=== PATIENT | male | born 1955 | race Caucasian/White ===

== ENCOUNTER 2017-05-16 10:33 | Outpatient (CLI) | payer BC ==
--- NOTE | 2017-05-16 13:20 | ULT ---
ULTRASOUND ABDOMEN COMPLETE: HISTORY: 61-year-old male with generalized abdominal pain. COMPARISON: None. TECHNIQUE: Schmidt-scale ultrasound evaluation of the liver, gallbladder, spleen, pancreas, common bile duct, kidn eys, abdominal aorta, and inferior vena cava (IVC). FINDINGS: There is a large amount of shadowing from bowel gas which obscures certain portions of the abdominal cavity. There dilated, tortuous blood vessels in the upper abdomen, directly inferior to the left l obe of the liver. The varices are up to 20 mm in caliber. The liver is normal in size and echogenici ty. The spleen is approximately 15.5 x 10 x 11 cm, and has lost its normal hilar concavity. A struct ure labelled as the common duct is 4 mm in caliber. There is no hydronephrosis of the bilateral kidn eys. The pancreas is very poorly visualized. The abdominal aorta and inferior vena cava are poorly v isualized. No free fluid is identified in the bilateral upper quadrants. No gallstones are identifie d. No gallbladder wall thickening or sonographic Elmore's sign. IMPRESSION: 1. 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 2. Splenomegaly. 3. Consider CT of abdomen and pelvis with contrast, for further evaluation. CAPRICE Ball POS: [place]
== END 2017-05-16 10:34 | disposition home or self-care (01) ==
LOC: ULT 10:33
PROVIDERS: ATTEND Family Medicine
DX: R60.0 Localized edema (principal); I86.8 Varicose veins of other specified sites; R16.1 Splenomegaly, not elsewhere classified; I07.1 Rheumatic tricuspid insufficiency; I34.0 Nonrheumatic mitral (valve) insufficiency; I35.1 Nonrheumatic aortic (valve) insufficiency
CPT/HCPCS: 76700; 93306

== ENCOUNTER 2021-12-01 07:41 | Outpatient (CLI) | payer MEDICARE, OTHER | END 2021-12-01 07:42 | disposition home or self-care (01) | LOC: BICULT 07:41 | PROVIDERS: ATTEND Family Medicine | DX: R74.01 Elevation of levels of liver transaminase levels (principal); D69.6 Thrombocytopenia, unspecified | CPT/HCPCS: 76700 ==

== ENCOUNTER 2022-02-01 08:00 | Outpatient (CLI) | payer MEDICARE, OTHER ==
[2022-02-01] MEDS ORDERED: Iopamidol-370 76% 500 ML 1 ML ONE (11:10)
== END 2022-02-01 08:01 | disposition home or self-care (01) ==
LOC: BICCT 08:00
PROVIDERS: ATTEND Physician Assistant Medical
DX: R79.89 Other specified abnormal findings of blood chemistry (principal); D69.6 Thrombocytopenia, unspecified; E80.6 Other disorders of bilirubin metabolism; T14.8XXA Other injury of unspecified body region, initial encounter; R53.83 Other fatigue; K76.6 Portal hypertension; R16.1 Splenomegaly, not elsewhere classified; I81 Portal vein thrombosis; I86.8 Varicose veins of other specified sites; R60.0 Localized edema; K82.8 Other specified diseases of gallbladder
CPT/HCPCS: 74170; Q9967

== ENCOUNTER 2022-07-27 08:47 | Outpatient (CLI) | payer MEDICARE | END 2022-07-27 08:48 | disposition home or self-care (01) | LOC: MRI 08:47 | PROVIDERS: ATTEND Physician Assistant Medical | DX: B18.2 Chronic viral hepatitis C (principal); K74.60 Unspecified cirrhosis of liver; K76.6 Portal hypertension; I81 Portal vein thrombosis | CPT/HCPCS: 74183 ==

== ENCOUNTER 2022-12-12 16:34 | Outpatient (CLI) | payer MEDICARE ==
[2022-12-12 17:51] LABS: ALT (SGPT) 39 U/L (8-55); AST (SGOT) 48 U/L (5-34); Albumin 3.1 g/dL (3.4-4.8); Alkaline Phosphatase 84 U/L (40-110); Anion Gap 11 mmol/L (10-20); BUN (Urea Nitrogen) 19 mg/dL (8.4-25.7); Bilirubin, Total 1.4 mg/dL (0.2-1.2); Calc. Creatinine Clearance 0 mL/min (70-130); Calcium 8.5 mg/dL (7.8-10.44); Carbon Dioxide 20 mmol/L (23-31); Chloride 112 mmol/L (98-107); Estimated GFR 105; Globulin 2.7 g/dL (2.4-3.5); Glucose 95 mg/dL (80-115); Potassium 4.4 mmol/L (3.5-5.1); Protein, Total 5.8 g/dL (5.8-8.1); Sodium 139 mmol/L (136-145)
[2022-12-12 17:52] LABS: #Basophils 0.1 10x3/uL (0.0-0.2); #Eosinphils 0.2 10x3/uL (0.0-0.5); #Monocytes 0.4 10x3/uL (0.0-1.1); #Neutrophils 2.7 10x3/uL (1.5-8.4); %Basophils 1.1 % (0.0-2.0); %Eosinophils 4.3 % (0.0-6.0); %Lymphocytes 24.9 % (18.0-47.0); Hemoglobin 14.5 g/dL (13.5-17.5); Mean Corpuscular HGB CONC 35.1 g/dL (32.0-36.0); Mean Corpuscular Hemoglobin 34.4 pg (27.0-33.0); Mean Corpuscular Volume 97.9 fl (81.2-95.1); Mean Platelet Volume 11.4 fl (7.4-10.4); Platelet Count 64 10x3/uL (150-450); RBC Distribution Width 14.2 % (11.5-14.5); Red Blood Cell (RBC) Count 4.22 10x6/uL (4.32-5.72); White Blood Cell (WBC) Count 4.4 10x3/uL (3.5-10.5)
== END 2022-12-12 16:35 | disposition home or self-care (01) ==
LOC: LABBT 16:34
PROVIDERS: ATTEND Surgery
DX: Z01.818 Encounter for other preprocedural examination (principal); K42.9 Umbilical hernia without obstruction or gangrene
CPT/HCPCS: 80053; 85025; 93005; 93010

== ENCOUNTER 2022-12-15 11:21 | Day surgery (SDC) | payer MEDICARE ==
[2022-12-12 16:59] VITALS: BMI 26.6
[2022-12-15] MEDS ORDERED: Bupivacaine/Epinephrine 0.25% 30 ML VIAL ONE (12:17)
[2022-12-15] MEDS ORDERED: Fentanyl 250 MCG/5 ML VIAL ONE (12:36)
[2022-12-15] MEDS ORDERED: Sodium Chloride 0.9% 100 ML ONE (12:42)
[2022-12-15] MEDS ORDERED: CEFAZOLIN 2 GM VIAL ONE (12:42)
[2022-12-15] MEDS ORDERED: Ketorolac Tromethamine 30 MG/ML VIAL ONE (12:48)
[2022-12-15] MEDS ORDERED: Ondansetron PF 4 MG/2 ML Vial ONE (12:48)
[2022-12-15] MEDS ORDERED: Dexamethasone 20 MG/5 ML VIAL ONE (12:48)
[2022-12-15] MEDS ORDERED: Lidocaine 1% PF 5 ML VIAL ONE (12:48)
[2022-12-15] MEDS ORDERED: PROPOFOL 200 MG/20 ML VIAL ONE (12:48)
== END 2022-12-15 16:12 | disposition home or self-care (01) ==
LOC: SDC 11:21
PROVIDERS: ATTEND Surgery
PROC: 0WQF0ZZ Repair Abdominal Wall, Open Approach (ICD-10-PCS; principal; 2022-12-15)
DX: K42.9 Umbilical hernia without obstruction or gangrene (principal); F17.290 Nicotine dependence, other tobacco product, uncomplicated; Z79.899 Other long term (current) drug therapy; Z91.038 Other insect allergy status
CPT/HCPCS: J1100; J1885; J2405; J2704; J3010; J3490

== ENCOUNTER 2023-04-26 08:33 | Outpatient (CLI) | payer MEDICARE | END 2023-04-26 08:34 | disposition home or self-care (01) | LOC: ULT 08:33 | PROVIDERS: ATTEND Physician Assistant Medical | DX: K74.60 Unspecified cirrhosis of liver (principal); R16.1 Splenomegaly, not elsewhere classified | CPT/HCPCS: 76705 ==

== ENCOUNTER 2023-08-09 10:20 | Outpatient (CLI) | payer MEDICARE | END 2023-08-09 10:21 | disposition home or self-care (01) | LOC: ULT 10:20 | PROVIDERS: ATTEND Family Medicine | DX: N50.9 Disorder of male genital organs, unspecified (principal); N44.2 Benign cyst of testis; N50.3 Cyst of epididymis; N43.3 Hydrocele, unspecified; N49.2 Inflammatory disorders of scrotum | CPT/HCPCS: 76870; 93976 ==

== ENCOUNTER 2024-08-14 09:35 | Outpatient (CLI) | payer MEDICARE | END 2024-08-14 09:36 | disposition home or self-care (01) | LOC: MRI 09:35 | PROVIDERS: ATTEND Internal Medicine Gastroenterology | DX: K74.69 Other cirrhosis of liver (principal); K72.90 Hepatic failure, unspecified without coma; D37.6 Neoplasm of uncertain behavior of liver, gallbladder and bile ducts; K76.6 Portal hypertension | CPT/HCPCS: 36415; 74183; 82565 ==

== ENCOUNTER 2024-11-27 07:50 | Outpatient (CLI) | payer MEDICARE | END 2024-11-27 07:51 | disposition home or self-care (01) | LOC: CT 07:50 | DX: Z01.818 Encounter for other preprocedural examination (principal); C22.0 Liver cell carcinoma; K74.60 Unspecified cirrhosis of liver; K76.6 Portal hypertension; I81 Portal vein thrombosis | CPT/HCPCS: 36415; 74170; 82565 ==